=== PATIENT | male | born 1985 | race Caucasian/White ===

== ENCOUNTER 2018-05-25 20:02 | Emergency (ER) | payer BC ==
[2018-05-25] MEDS ORDERED: Sodium Chloride 0.9% 10 ML Syringe FLUSH PRN (20:57)
[2018-05-25] MEDS ORDERED: Sodium Chloride 0.9% 1,000 ML IV ONE (20:57)
[2018-05-25] MEDS ORDERED: Ondansetron 4 MG/2 ML SDV IVPUSH ONE (20:57)
--- NOTE | 2018-05-25 20:59 | EDM.PDOC ---
ED HPI GENERAL MEDICAL PROBLEM - General Chief Complaint: Abdominal Pain Stated Complaint: ABDOMINAL PAIN Time Seen by Provider: 05/25/18 20:44 Source of Information: Reports: Patient History Limitations: Reports: No Limitations - History of Present Illness INITIAL COMMENTS - FREE TEXT/NARRATIVE: Patient is a 32-year-old male presents ED complaining of left lower quadrant abdominal pain. Patient states today the pain started approximately 1530 while at work. Patient describes the pain as a dull ache with intermittent shooting sharp pains. He's had multiple episodes of diarrhea today. No blood present. States she's had a history of diarrhea from May 11 May 22. This stopped for a few days and has come back with recent worsening symptoms. There's been no ingestion of bad or questionable food, sick contact, history of C. difficile , or out of country travel. Has been no documented fever, shortness of breath, chest pain, rash, or any additional complaints. States at times he does experience some dysuria. He has no history of kidney stones. States he is concerned about diverticulitis since there is a strong family history of it. Patient was triaged at the [facility] and was instructed to come to the ED without being seen by provider. Patient has no past medical history. Medications none. Surgical history none. Patient does not smoke, use recreational drugs, or consume alcohol. Left Lower Abdomen Pain Score (Numeric/FACES): 6 - Related Data Allergies Allergy/AdvReac Type Severity Reaction Status Date / Time No Known Allergies Allergy Verified 05/25/18 20:19 Home Meds: Home Meds Ondansetron [Zofran ODT] 4 mg PO Q6H PRN #15 tab.dis 05/26/18 [Rx] metroNIDAZOLE [Flagyl] 500 mg PO Q8H #30 tab 05/26/18 [Rx] Past Medical History - Past Surgical History HEENT Surgical History: Reports: Eye Surgery, Tonsillectomy Social & Family History - Tobacco Use Smoking Status *Q: Never Smoker - Caffeine Use Caffeine Use: Reports: Coffee, Soda - Recreational Drug Use Recreational Drug Use: No ED ROS GENERAL - Review of Systems Review Of Systems: See Below ED EXAM, GI/ABD - Physical Exam Exam: See Below Exam Limited By: No Limitations General Appearance: Alert, WD/WN, Mild Distress Ears: Hearing Grossly Normal Nose: Normal Inspection Throat/Mouth: Normal Inspection, Normal Oropharynx, Normal Voice, No Airway Compromise Neck: Normal Inspection, Supple Respiratory/Chest: No Respiratory Distress, Lungs Clear, Normal Breath Sounds, No Accessory Muscle Use, Chest Non-Tender Cardiovascular: Normal Peripheral Pulses, Regular Rate, Rhythm, No Murmur GI/Abdominal Exam: Normal Bowel Sounds, Soft, No Organomegaly, No Distention, Tender (LLQ) Back Exam: Normal Inspection Extremities: Normal Inspection Neurological: Alert, Oriented, CN II-XII Intact, Normal Cognition, No Motor/ Sensory Deficits Psychiatric: Normal Affect, Normal Mood Skin Exam: Warm, Dry, Intact, Normal Color Course - Vital Signs Last Recorded V/S: Last Vital Signs Temp 97.9 F 05/25/18 20:15 Pulse 77 05/25/18 20:15 Resp 20 05/25/18 20:15 BP 129/86 05/25/18 20:15 Pulse Ox 99 05/25/18 20:15 - Orders/Labs/Meds Labs: Laboratory Tests 05/25/18 05/25/18 05/25/18 Range/Units 21:22 21:22 23:29 WBC 12.52 H (4.23-9.07) K/mm3 RBC 5.44 (4.63-6.08) M/mm3 Hgb 16.1 (13.7-17.5) gm/L Hct 46.9 (40.1-51.0) % MCV 86.2 (79.0-92.2) fl MCH 29.6 (25.7-32.2) pg MCHC 34.3 (32.2-35.5) g/dl RDW Std Deviation 39.5 (35.1-43.9) fL Plt Count 211 (163-337) K/mm3 MPV 9.8 (9.4-12.3) fl Neutrophils % (Manual) 77 H (40-60) % Band Neutrophils % 0 (0-10) % Lymphocytes % (Manual) 15 L (20-40) % Atypical Lymphs % 0 % Monocytes % (Manual) 7 (2-10) % Eosinophils % (Manual) 1 (0.8-7.0) % Basophils % (Manual) 0 L (0.2-1.2) Platelet Estimate Adequate RBC Morph Comment Normal Sodium 140 (136-145) mEq/L Potassium 4.2 (3.5-5.1) mEq/L Chloride 104 (98-107) mEq/L Carbon Dioxide 27 (21-32) mEq/L Anion Gap 13.2 (5-15) BUN 18 (7-18) mg/dL Creatinine 1.2 (0.7-1.3) mg/dL Est Cr Clr Drug Dosing 97.00 mL/min Estimated GFR (MDRD) > 60 (>60) mL/min BUN/Creatinine Ratio 15.0 (14-18) Glucose 98 (74-106) mg/dL Calcium 9.0 (8.5-10.1) mg/dL Total Bilirubin 0.7 (0.2-1.0) mg/dL AST 23 (15-37) U/L ALT 66 H (16-63) U/L Alkaline Phosphatase 81 (46-116) U/L C-Reactive Protein 2.7 H* (<1.0) mg/dL Total Protein 7.2 (6.4-8.2) g/dl Albumin 3.7 (3.4-5.0) g/dl Globulin 3.5 gm/dL Albumin/Globulin Ratio 1.1 (1-2) C.difficile [id number] Presumptive negative C. difficile Tox (PCR) Negative Meds: Medications Discontinued Medications Generic Name Dose Route Start Last Admin Trade Name Shahabq PRN Reason Stop Dose Admin Sodium Chloride 1,000 mls @ 250 mls/hr 05/25/18 20:57 05/25/18 21:23 Normal Saline IV 05/26/18 00:56 250 mls/hr ONETIME ONE Administration Ceftriaxone Sodium 2 gm/ 100 mls @ 200 mls/hr 05/25/18 23:44 05/25/18 23:59 Sodium Chloride IV 05/26/18 00:13 200 mls/hr ONETIME ONE Administration Metronidazole 500 mg/ Premix 100 mls @ 100 mls/hr 05/25/18 23:44 05/26/18 00: 31 IV 05/26/18 00:43 100 mls/hr ONETIME ONE Administration Ondansetron HCl 4 mg 05/25/18 20:57 05/25/18 21:23 Zofran IVPUSH 05/25/18 20:58 4 mg ONETIME ONE Administration Sodium Chloride 10 ml 05/25/18 20:57 05/25/18 21:24 Saline Flush FLUSH 10 ml ASDIRECTED PRN Administration Keep Vein Open - Re-Assessments/Exams Free Text/Narrative Re-Assessment/Exam: IV established with normal saline 250 mL per hour and also Zofran 4 mg IVP. Initial labs and studies include: CBC, chem 14, CRP, UA, and CT the abdomen and pelvis with oral and IV contrast. Patient refuses narcotic pain medications. Stool WBC final: Rare I have ordered C. difficile by PCR and stool culture. Labs reviewed: White blood cell count 12.52, hemoglobin 16.1, platelet count 211 , neutrophil percentage 77 with no left shift. Chemistry panel is essentially normal. CRP 2.7. ALT only mildly elevated at 66. 05/25/18 23:45 CT abdomen and pelvis reviewed with Dr. Gibbs. Findings concerning for diverticulitis LLQ. Ordered flagyl 500mg IV and rocephin 2 grams IV. Final interpretation is pending. 05/26/18 00:00 CT abdomen/pelvis impression: Acute left-sided sigmoid diverticulitis but no evidence for abscess bowel obstruction or free air. Will discharge patient home with instructions as documented. The patient remained hemodynamically stable while under my care in the E.D. I discussed the concerning symptoms for which to returnto the E.D. with the patient/family. The patient/family verbalized understanding. All questions were answered. Departure - Departure Time of Disposition: 00:01 Disposition: Home, Self-Care 01 Condition: Good Clinical Impression: Diverticulitis of sigmoid colon - Discharge Information Prescriptions: metroNIDAZOLE [Flagyl] 500 mg PO Q8H #30 tab Ondansetron [Zofran ODT] 4 mg PO Q6H PRN #15 tab.dis PRN Reason: Nausea Instructions: High-Fiber Diet, Diverticulitis Referrals: Sukumar Meyer Jr, MD [Primary Care Provider] - Forms: ED Department Discharge, ED Return to Work/School Form Additional Instructions: Take the full course of Flagyl as prescribed. Utilize Zofran as needed for nausea and vomiting. Push the fluids. For the next 48 to 72 hrs stick to a liquid diet. Thereafter advance to a low residue diet for duration of infection. Suggest utilizing a OTC probiotic as well. Take ibuprofen 600mg every 6 hrs with food and plenty of water. Followup with PCP in the next 3 to 5 days. Return to the E.D. if you develop any new or worsening symptoms.
[2018-05-25] MEDS ORDERED: metroNIDAZOLE/Normal Saline 500 MG in Premix Bag 1 BAG IV ONE (23:44)
[2018-05-25] MEDS ORDERED: cefTRIAXone 2 GM in Sodium Chloride 0.9% 100 ML IV ONE (23:44)
--- NOTE | 2018-05-26 17:16 | CT ---
CT abdomen and pelvis Technique: Multiple axial sections were obtained from above the dome of the diaphragm inferiorly through the pubic symphysis. Intravenous and oral contrast was utilized. Delayed images were also obtained through the pelvis. Findings: Inflammatory change is seen around a portion of the sigmoid colon. Adjacent bowel wall thickening is seen. This occurs in an area of diverticulosis and findings are felt compatible with diverticulitis. No free fluid is seen. Visualized lung bases show nothing acute. Liver shows diffuse decreased density compatible with fatty infiltration. Spleen appears within normal limits. Adrenal glands show no nodule. Pancreas appears within normal limits. Small scattered lymph nodes are seen within the retroperitoneum which are felt to be within normal limits. Appendix is seen which is normal. Aorta shows no aneurysmal dilatation. No pelvic mass or adenopathy is seen. Delayed images show contrast within the distal ureters and within the bladder. Bone window settings were reviewed which show spondylitic defects at L5-S1 with minimal spondylolisthesis. Impression: 1. Sigmoid diverticulitis. 2. Fatty infiltration within the liver and other incidental findings. Diagnostic code #3 I agree with preliminary report issued by [employer] ([employer] report finalized on 05/26/18, 12:58 AM Central Time)
== END 2018-05-26 01:38 | disposition home or self-care (01) ==
LOC: JD.ED 20:02
DX: K57.32 Diverticulitis of large intestine without perforation or abscess without bleeding (principal)
CPT/HCPCS: 36415; 74177; 80053; 85007; 85027; 86140; 87046; 87427; 87493; 89055; 96361; 96365; 96367; 96375; 99284; J0696; J2405; J3490; J7030; J7040; J7050

== ENCOUNTER 2021-06-22 04:44 | Day surgery (SDC) | payer BC ==
[2021-06-22] MEDS ORDERED: Sodium Chloride 0.9% 10 ML SDV FLUSH ONE (06:02)
--- NOTE | 2021-06-22 06:06 | EDM.PDOC ---
<Nakul Lewis - Last Filed: 06/22/21 07:10> ED HPI GENERAL MEDICAL PROBLEM - General Chief Complaint: Abdominal Pain Stated Complaint: ABDOMINAL PAIN Time Seen by Provider: 06/22/21 05:50 Source of Information: Reports: Patient History Limitations: Reports: No Limitations - History of Present Illness INITIAL COMMENTS - FREE TEXT/NARRATIVE: Mr. Barney is a very pleasant 36-year-old gentleman who now presents the ED stating that he was woken with right lower quadrant abdominal pain around 01:00 this morning. He describes the pain as sharp and crampy in character. He states it was constant up until around 05:35, when it improved, although did not resolve. He states that the pain does not radiate. It feels better if he lies in the left decubitus position, worse if he lies on the right decubitus position or is upright. He has had some nausea, but no vomiting. No recent constipation or diarrhea. No dysuria, urinary frequency, or gross hematuria. No recent fever. No prior similar symptoms. The patient did not take any [id number] or home remedies prior to coming to the ED. He states that he last ate around 20:00 last night. Here in the ED, the patient's initial BP is found to be mildly elevated at 145/88, otherwise, he is hemodynamically stable, afebrile, saturating 100% on room air. He appears to be mildly uncomfortable, but in no acute distress. Prior to this morning, the patient denies having a recent fever, chills, sore throat, ear pain, nasal or sinus congestion, cough, dyspnea, chest pain, palpitations, nausea, vomiting, constipation, diarrhea, abdominal pain, urinary symptoms, recent weight gain or weight loss, recent bloody bowel movements or black bowel movements, recent joint aches, headaches, or rashes. The patient's PCP is Dr. Aris Carballo. He has received 2 COVID vaccinations. Right Middle Abdomen Pain Score (Numeric/FACES): 10 - Related Data Allergies Allergy/AdvReac Type Severity Reaction Status Date / Time No Known Allergies Allergy Verified 05/25/18 20:19 Home Meds: Home Meds Ondansetron [Zofran ODT] 4 mg PO Q6H PRN #15 tab.dis 05/26/18 [Rx] metroNIDAZOLE [Flagyl] 500 mg PO Q8H #30 tab 05/26/18 [Rx] Past Medical History Gastrointestinal History: Reports: Diverticulosis (diverticulitis) Endocrine/Metabolic History: Reports: Obesity/BMI 30+ - Past Surgical History HEENT Surgical History: Reports: Adenoidectomy, Eye Surgery, Oral Surgery (dental extractions), Tonsillectomy Social & Family History - Tobacco Use Tobacco Use Status *Q: Never Tobacco User - Caffeine Use Caffeine Use: Reports: Coffee, Soda - Alcohol Use Alcohol Use History: No - Recreational Drug Use Recreational Drug Use: No - Living Situation & Occupation Living situation: Reports: , with Spouse, with Family (4 kids) 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 ED EXAM, GI/ABD - Physical Exam Exam: See Below Exam Limited By: No Limitations General Appearance: Alert, WD/WN, Mild Distress (appears mildly uncomfortable) Eyes: Bilateral: Normal Appearance, EOMI Ears: Normal External Exam, Hearing Grossly Normal Nose: Normal Inspection Throat/Mouth: Normal Inspection, Normal Lips, Normal Voice, No Airway Compromise Head: Atraumatic, Normocephalic Neck: Normal Inspection, Full Range of Motion Respiratory/Chest: No Respiratory Distress, Lungs Clear, Normal Breath Sounds, No Accessory Muscle Use Cardiovascular: Normal Peripheral Pulses, Regular Rate, Rhythm, No Edema, No Gallop, No JVD, No Murmur, No Rub GI/Abdominal Exam: Normal Bowel Sounds, Soft, No Organomegaly, No Distention, No Abnormal Bruit, No Mass, Tender (Right lower quadrant only. Nontender elsewhere.), Other (Obturator sign absent. Psoas sign absent. Heel drop sign present.). No: Rebound Back Exam: Normal Inspection, Full Range of Motion. No: CVA Tenderness (L), CVA Tenderness (R) Extremities: Normal Inspection, Normal Range of Motion, No Pedal Edema, Normal Capillary Refill Neurological: Alert, Oriented, Normal Cognition, No Motor/Sensory Deficits Psychiatric: Normal Affect Skin Exam: Warm, Dry, Intact, Normal Color, No Rash Course - Re-Assessments/Exams Free Text/Narrative Re-Assessment/Exam: 06/22/21 06:00 The patient's presentation is most consistent with acute appendicitis. I have ordered some blood work, a swab for the SARS-CoV-2 virus, and a CT of the abdomen and pelvis with oral and IV contrast. In the meantime, the patient will be given IV fluid. He declined an offer for both pain medication and antinausea medicine at this time. 06/22/21 07:[address] Gibbs, and care of the patient turned over to him at this time, for change of shift. Departure - Departure Disposition: DC/Tfer to Critical Access 66 Clinical Impression: Appendicitis Qualifiers: Appendicitis type: acute appendicitis Acute appendicitis type: other Qualified Code(s): K35.890 - Other acute appendicitis without perforation or gangrene; K35.89 - Other acute appendicitis - Discharge Information Referrals: Aris Carballo MD [Primary Care Provider] - Forms: ED Department Discharge Sepsis Event Note (ED) - Evaluation Sepsis Screening Result: No Definite Risk <Uri Gibbs - Last Filed: 06/22/21 09:50> Course - Vital Signs Last Recorded V/S: Last Vital Signs Temp 98.1 F 06/22/21 05:11 Pulse 88 06/22/21 05:11 Resp 18 06/22/21 05:11 BP 145/88 H 06/22/21 05:11 Pulse Ox 100 06/22/21 05:11 - Orders/Labs/Meds Orders: Active Orders 24 hr Category Date Time Status Sodium Chloride 0.9% [Normal Saline] 1,000 ml Med 06/22/21 06:00 Active IV ASDIRECTED Sodium Chloride 0.9% [Normal Saline] 100 ml Med 06/22/21 06:15 Active IV ASDIRECTED Medication Orders Sodium Chloride (Normal Saline) 1,000 mls @ 150 mls/hr IV ASDIRECTED SANA Last Admin: 06/22/21 07:40 Dose: 150 mls/hr Documented by: HARLAN Sodium Chloride (Normal Saline) 100 mls @ 65 mls/min IV ASDIRECTED SANA Labs: Laboratory Tests 06/22/21 06/22/21 06/22/21 Range/Units 06:12 06:12 06:30 WBC 10.65 H (4.23-9.07) K/mm3 RBC 5.52 (4.63-6.08) M/mm3 Hgb 16.4 (13.7-17.5) gm/dl Hct 47.5 (40.1-51.0) % MCV 86.1 (79.0-92.2) fl MCH 29.7 (25.7-32.2) pg MCHC 34.5 (32.2-35.5) g/dl RDW Std Deviation 39.4 (35.1-43.9) fL Plt Count 216 (163-337) K/mm3 MPV 10.0 (9.4-12.3) fl Neutrophils % (Manual) 74 H (40-60) % Band Neutrophils % 1 (0-10) % Lymphocytes % (Manual) 18 L (20-40) % Atypical Lymphs % 0 % Monocytes % (Manual) 6 (2-10) % Eosinophils % (Manual) 0 L (0.8-7.0) % Basophils % (Manual) 1 (0.2-1.2) Platelet Estimate Adequate Plt Morphology Comment Normal RBC Morph Comment Normal Sodium 139 (136-145) mEq/L Potassium 4.3 (3.5-5.1) mEq/L Chloride 106 (98-107) mEq/L Carbon Dioxide 25 (21-32) mEq/L Anion Gap 12.3 (5-15) BUN 14 (7-18) mg/dL Creatinine 1.1 (0.7-1.3) mg/dL Est Cr Clr Drug Dosing 101.90 mL/min Estimated GFR (MDRD) > 60 (>60) mL/min BUN/Creatinine Ratio 12.7 L (14-18) Glucose 105 H (70-99) mg/dL Calcium 8.7 (8.5-10.1) mg/dL Total Bilirubin 0.6 (0.2-1.0) mg/dL AST 26 (15-37) U/L ALT 93 H (16-63) U/L Alkaline Phosphatase 63 (46-116) U/L Total Protein 7.0 (6.4-8.2) g/dl Albumin 3.6 (3.4-5.0) g/dl Globulin 3.4 gm/dL Albumin/Globulin Ratio 1.1 (1-2) SARS-CoV-2 RNA (KIMANI) Negative (NEGATIVE) Meds: Medications Generic Name Dose Route Start Last Admin Trade Name Freq PRN Reason Stop Dose Admin Sodium Chloride 1,000 mls @ 150 mls/hr 09/12/21 06:00 06/22/21 07:40 Normal Saline IV 150 mls/hr ASDIRECTED SANA Administration Sodium Chloride 100 mls @ 65 mls/min 06/22/21 06:15 Normal Saline IV ASDIRECTED SANA Discontinued Medications Generic Name Dose Route Start Last Admin Trade Name Zacarias PRN Reason Stop Dose Admin Dexamethasone Confirm 06/22/21 09:40 Dexamethasone 4 Mg/Ml 5 Ml Mdv Administered 06/22/21 09:41 Dose 20 mg .ROUTE .STK-MED ONE Diatrizoate Meglum/Diatrizoate Sod 120 ml 06/22/21 06:02 06/22/21 08:14 Diatrizoate Meglumine/Diatrizoate Sodium 37% 120 Ml Bottle PO 06/22/21 06:03 45 ml ONETIME ONE Administration Fentanyl Confirm 06/22/21 09:40 Fentanyl 250 Mcg/5 Ml Sdv Administered 06/22/21 09:41 Dose 250 mcg .ROUTE .STK-MED ONE Iopamidol 50 ml 06/22/21 06:02 06/22/21 08:15 Iopamidol 612 Mg/Ml 50 Ml Sdv IVPUSH 06/22/21 06:03 25 ml ONETIME ONE Administration Iopamidol 100 ml 06/22/21 06:02 06/22/21 08:15 Iopamidol 612 Mg/Ml 100 Ml Bottle IVPUSH 06/22/21 06:03 100 ml ONETIME ONE Administration Lidocaine HCl Confirm 06/22/21 09:40 Lidocaine 1% 5 Ml Sdv Administered 06/22/21 09:41 Dose 5 ml .ROUTE .STK-MED ONE Midazolam HCl Confirm 06/22/21 09:40 Midazolam 1 Mg/Ml 2 Ml Sdv Administered 06/22/21 09:41 Dose 2 mg .ROUTE .STK-MED ONE Ondansetron HCl Confirm 06/22/21 09:40 Ondansetron 4 Mg/2 Ml Sdv Administered 06/22/21 09:41 Dose 4 mg .ROUTE .STK-MED ONE Propofol Confirm 06/22/21 09:40 Propofol 200 Mg/20 Ml Sdv Administered 06/22/21 09:41 Dose 400 mg .ROUTE .STK-MED ONE Rocuronium [place] Confirm 06/22/21 09:40 Rocuronium 50 Mg/5 Ml Vial Administered 06/22/21 09:41 Dose 50 mg .ROUTE .STK-MED ONE Sodium Chloride 10 ml 06/22/21 06:02 Sodium Chloride 0.9% 10 Ml Sdv FLUSH 06/22/21 06:03 ONETIME ONE - Re-Assessments/Exams Free Text/Narrative Re-Assessment/Exam: 06/22/21 09:[address] Lewis. The patient's WBC was elevated at 10.65. His ALT was elevated at 93. His COVID [address] shows appendix is seen. Mild inflammatory type change is seen around the appendix which is compatible with early appendicitis. I called Dr Gonzalez and he will come see the patient and take him to the OR. The patient still does not want anything for pain. Departure - Departure Time of Disposition: 09:50 Condition: Fair Sepsis Event Note (ED) - Focused Exam Vital Signs: Vital Signs Temp Pulse Resp BP Pulse Ox 06/22/21 05:11 98.1 F 88 18 145/88 H 100
[2021-06-22] MEDS ORDERED: Sodium Chloride 0.9% 100 ML IV SCH (06:15)
[2021-06-22] MEDS: Sodium Chloride 0.9% 1,000 ML IV SCH (07:40)
[2021-06-22] MEDS: Diatrizoate Meglumine/Diatrizoate Sodium 37% 120 ML Bottle PO ONE (08:14)
[2021-06-22] MEDS: Iopamidol 612 MG/ML 100 ML Bottle IVPUSH ONE (08:15)
[2021-06-22] MEDS: Iopamidol 612 MG/ML 50 ML SDV IVPUSH ONE (08:15)
--- NOTE | 2021-06-22 08:37 | CT ---
CT abdomen and pelvis Technique: Multiple axial sections were obtained from above the dome of the diaphragm inferiorly through the pubic symphysis. Intravenous and oral contrast were utilized. Delayed images were also obtained through the pelvis. Comparison: Prior CT abdomen and pelvis exam of 05/25/18. Findings: Visualized lung bases show nothing acute. Diffuse fatty infiltration is noted within the liver. Gallbladder contains no calcified gallstones. Spleen size is normal. Pancreas is within normal limits. Adrenal glands show no nodule. Kidneys show symmetric contrast enhancement. No hydronephrosis or mass is seen. Delayed images show contrast within the distal ureters and within the bladder. Abdominal aorta shows no aneurysm. No retroperitoneal adenopathy or mesenteric abnormalities are seen. No pelvic mass or adenopathy is seen. Diverticuli are seen within the descending colon and sigmoid regions with no findings of diverticulitis. Appendix is seen. Mild inflammatory type change is seen around the appendix which is compatible with early appendicitis. Bone window settings were obtained which show spondylolytic defects at L5-S1. No significant spondylolisthesis is seen. Impression: 1. Findings compatible with early appendicitis. 2. Prominent fatty infiltration within the liver. 3. Other findings as described above are felt to be chronic. Diagnostic code #5
[2021-06-22] MEDS ORDERED: fentaNYL 250 MCG/5 ML SDV ONE (09:40)
[2021-06-22] MEDS ORDERED: Midazolam 1 MG/ML 2 ML SDV ONE (09:40)
[2021-06-22] MEDS ORDERED: Dexamethasone 4 MG/ML 5 ML MDV ONE (09:40)
[2021-06-22] MEDS ORDERED: Ondansetron 4 MG/2 ML SDV ONE (09:40)
[2021-06-22] MEDS ORDERED: Rocuronium 50 MG/5 ML Vial ONE (09:40)
[2021-06-22] MEDS ORDERED: Propofol 200 MG/20 ML SDV ONE (09:40)
--- NOTE | 2021-06-22 09:54 | PCM.PREANE ---
Preanesthetic Assessment - Procedure Proposed Procedure: Laparoscopic appendectomy - Anesthesia/Transfusion/Family Hx Anesthesia History: Prior Anesthesia Without Reaction Family History of Anesthesia Reaction: No Transfusion History: No Prior Transfusion(s) Intubation History: Unknown - Review of Systems General: No Symptoms Pulmonary: No Symptoms Cardiovascular: No Symptoms Gastrointestinal: Abdominal Pain, Nausea Neurological: No Symptoms Other: Reports: None - Physical Assessment NPO Status Date: 06/21/21 NPO Status Time: 21:00 Vital Signs: Last Vital Signs Temp 98.1 F 06/22/21 05:11 Pulse 88 06/22/21 05:11 Resp 18 06/22/21 05:11 BP 145/88 H 06/22/21 05:11 Pulse Ox 100 06/22/21 05:11 Height: 1.83 m Weight: 127.006 kg ASA Class: 2E Mental Status: Alert & Oriented x3 Airway Class: Mallampati = 1 Dentition: Reports: Normal Dentition, Caries Thyro-Mental Finger Breadths: 3 Mouth Opening Finger Breadths: 3 ROM/Head Extension: Full Lungs: Clear to Auscultation, Normal Respiratory Effort Cardiovascular: Regular Rate, Regular Rhythm, No Murmurs - Lab Values: Laboratory Last Values WBC 10.65 K/mm3 (4.23-9.07) H 06/22/21 06:12 RBC 5.52 M/mm3 (4.63-6.08) 06/22/21 06:12 Hgb 16.4 gm/dl (13.7-17.5) 06/22/21 06:12 Hct 47.5 % (40.1-51.0) 06/22/21 06:12 MCV 86.1 fl (79.0-92.2) 06/22/21 06:12 MCH 29.7 pg (25.7-32.2) 06/22/21 06:12 MCHC 34.5 g/dl (32.2-35.5) 06/22/21 06:12 RDW Std Deviation 39.4 fL (35.1-43.9) 06/22/21 06:12 Plt Count 216 K/mm3 (163-337) 06/22/21 06:12 MPV 10.0 fl (9.4-12.3) 06/22/21 06:12 Neutrophils % (Manual) 74 % (40-60) H 06/22/21 06:12 Band Neutrophils % 1 % (0-10) 06/22/21 06:12 Lymphocytes % (Manual) 18 % (20-40) L 06/22/21 06:12 Atypical Lymphs % 0 % 06/22/21 06:12 Monocytes % (Manual) 6 % (2-10) 06/22/21 06:12 Eosinophils % (Manual) 0 % (0.8-7.0) L 06/22/21 06:12 Basophils % (Manual) 1 (0.2-1.2) 06/22/21 06:12 Platelet Estimate Adequate 06/22/21 06:12 Plt Morphology Comment Normal 06/22/21 06:12 RBC Morph Comment Normal 06/22/21 06:12 Sodium 139 mEq/L (136-145) 06/22/21 06:12 Potassium 4.3 mEq/L (3.5-5.1) 06/22/21 06:12 Chloride 106 mEq/L (98-107) 06/22/21 06:12 Carbon Dioxide 25 mEq/L (21-32) 06/22/21 06:12 Anion Gap 12.3 (5-15) 06/22/21 06:12 BUN 14 mg/dL (7-18) 06/22/21 06:12 Creatinine 1.1 mg/dL (0.7-1.3) 06/22/21 06:12 Est Cr Clr Drug Dosing 101.90 mL/min 06/22/21 06:12 Estimated GFR (MDRD) > 60 mL/min (>60) 06/22/21 06:12 BUN/Creatinine Ratio 12.7 (14-18) L 06/22/21 06:12 Glucose 105 mg/dL (70-99) H 06/22/21 06:12 Calcium 8.7 mg/dL (8.5-10.1) 06/22/21 06:12 Total Bilirubin 0.6 mg/dL (0.2-1.0) 06/22/21 06:12 AST 26 U/L (15-37) 06/22/21 06:12 ALT 93 U/L (16-63) H 06/22/21 06:12 Alkaline Phosphatase 63 U/L (46-116) 06/22/21 06:12 Total Protein 7.0 g/dl (6.4-8.2) 06/22/21 06:12 Albumin 3.6 g/dl (3.4-5.0) 06/22/21 06:12 Globulin 3.4 gm/dL 06/22/21 06:12 Albumin/Globulin Ratio 1.1 (1-2) 06/22/21 06:12 SARS-CoV-2 RNA (KIMANI) Negative (NEGATIVE) 06/22/21 06:30 - Allergies Allergies/Adverse Reactions: Allergies Allergy/AdvReac Type Severity Reaction Status Date / Time No Known Allergies Allergy Verified 05/25/18 20:19 - Blood Blood Available: No Product(s) Available: None - Anesthesia Plan Pre-Op Medication Ordered: None - Acknowledgements Anesthesia Type Planned: General Anesthesia Pt an Appropriate Candidate for the Planned Anesthesia: Yes Alternatives and Risks of Anesthesia Discussed w Pt/Guardian: Yes Pt/Guardian Understands and Agrees with Anesthesia Plan: Yes PreAnesthesia Questionnaire HEENT History: Reports: Impaired Vision Cardiovascular History: Reports: None Respiratory History: Reports: None Gastrointestinal History: Reports: Diverticulosis (diverticulitis) Genitourinary History: Reports: None Musculoskeletal History: Reports: None Neurological History: Reports: None Psychiatric History: Reports: None Endocrine/Metabolic History: Reports: Obesity/BMI 30+ Hematologic History: Reports: None Immunologic History: Reports: None Oncologic (Cancer) History: Reports: None Dermatologic History: Reports: None - Past Surgical History HEENT Surgical History: Reports: Adenoidectomy, Eye Surgery, Oral Surgery (dental extractions), Tonsillectomy - SUBSTANCE USE Tobacco Use Status *Q: Never Tobacco User Tobacco Use Within Last Twelve Months: No Second Hand Smoke Exposure: No Days Per Week of Alcohol Use: 0 Number of Drinks Per Day: 0 Total Drinks Per Week: 0 Recreational Drug Use History: No - HOME MEDS Home Medications: Home Meds Ondansetron [Zofran ODT] 4 mg PO Q6H PRN #15 tab.dis 05/26/18 [Rx] metroNIDAZOLE [Flagyl] 500 mg PO Q8H #30 tab 05/26/18 [Rx] - CURRENT (IN HOUSE) MEDS Current Meds: Current Medications Sodium Chloride (Normal Saline) 1,000 mls @ 150 mls/hr IV ASDIRECTED SANA Last Admin: 06/22/21 07:40 Dose: 150 mls/hr Documented by: Sodium Chloride (Normal Saline) 100 mls @ 65 mls/min IV ASDIRECTED SANA Discontinued Medications Dexamethasone (Dexamethasone 4 Mg/Ml 5 Ml Mdv) Confirm Administered Dose 20 mg .ROUTE .STK-MED ONE Stop: 06/22/21 09:41 Diatrizoate Meglum/Diatrizoate Sod (Diatrizoate Meglumine/Diatrizoate Sodium 37% 120 Ml Bottle) 120 ml PO ONETIME ONE Stop: 06/22/21 06:03 Last Admin: 06/22/21 08:14 Dose: 45 ml Documented by: Fentanyl (Fentanyl 250 Mcg/5 Ml Sdv) Confirm Administered Dose 250 mcg .ROUTE .STK-MED ONE Stop: 06/22/21 09:41 Iopamidol (Iopamidol 612 Mg/Ml 50 Ml Sdv) 50 ml IVPUSH ONETIME ONE Stop: 06/22/21 06:03 Last Admin: 06/22/21 08:15 Dose: 25 ml Documented by: Iopamidol (Iopamidol 612 Mg/Ml 100 Ml Bottle) 100 ml IVPUSH ONETIME ONE Stop: 06/22/21 06:03 Last Admin: 06/22/21 08:15 Dose: 100 ml Documented by: Lidocaine HCl (Lidocaine 1% 5 Ml Sdv) Confirm Administered Dose 5 ml .ROUTE .STK-MED ONE Stop: 06/22/21 09:41 Midazolam HCl (Midazolam 1 Mg/Ml 2 Ml Sdv) Confirm Administered Dose 2 mg .ROUTE .STK-MED ONE Stop: 06/22/21 09:41 Ondansetron HCl (Ondansetron 4 Mg/2 Ml Sdv) Confirm Administered Dose 4 mg .ROUTE .STK-MED ONE Stop: 06/22/21 09:41 Propofol (Propofol 200 Mg/20 Ml Sdv) Confirm Administered Dose 400 mg .ROUTE .STK-MED ONE Stop: 06/22/21 09:41 Rocuronium [place] (Rocuronium 50 Mg/5 Ml Vial) Confirm Administered Dose 50 mg .ROUTE .STK-MED ONE Stop: 06/22/21 09:41 Sodium Chloride (Sodium Chloride 0.9% 10 Ml Sdv) 10 ml FLUSH ONETIME ONE Stop: 06/22/21 06:03
--- NOTE | 2021-06-22 10:37 | PCM.PRNOTE ---
- Free Text/Narrative Note: Date: 06/22/2021 Operation: laparoscopic appendectomy Indication: acute appendicitis Surgeon: Zhang Gonzalez MD Antibiotic: 2 g cefoxitin IV pre-incision EBL: 10 cc DVT ppx: SCD Specimen: appendix Findings: acute appendicitis without gangrene or perforation. Bleeding at left lower quadrant port site required transfascial suture ligature. Detailed Report: The patient was taken to the operating room placed on the table in supine position. Timeout was performed and general endotracheal anesthesia was initiated. Abdominal hair was clipped, and the abdomen was prepped and draped in usual sterile fashion. A Veress needle was placed in the left upper quadrant in order to establish pneumoperitoneum. Once pressure reached 15 mmHg, air was aspirated inferior to the umbilicus with a needle and syringe. A bladed 12 mm trocar was inserted inferior to the umbilicus, and a laparoscope was introduced into the abdomen. The patient was positioned in Trendelenburg and rotated to the left towards the surgeon. Additional 5 mm ports were placed in the suprapubic region in the left lower quadrant. The appendix was identified coming off the base of the cecum. A window was made in the mesoappendix using the [place] LigaSure at the base of the appendix. A 30 mm white laparoscopic linear stapler load was used to divide the appendix. The mesoappendix was divided using the LigaSure. The specimen was placed in an Endo Catch and removed through the umbilical port. The dissection field appeared clean and dry after suctioning. The umbilical incision was closed to the level of fascia with 0 Vicryl using laparoscopic suture passer. The left lower quadrant port was removed under laparoscopic visualization and hemorrhage was observed. This was not easily controlled with monopolar energy and so the laparoscopic suture passer was used to place a transfascial suture ligature which controlled the bleeding. Pneumoperitoneum was released and the remaining port was removed. Skin incisions were closed with subcuticular Vicryl suture and dressed with Dermabond. A total of 30 cc 0.5% Marcaine with epinephrine was used for local anesthetic throughout the case. The patient tolerated the procedure well.
[2021-06-22] MEDS: Bupivacaine 0.5%/EPINEPHrine 1:200,000 50 ML MDV ONE (10:44)
[2021-06-22] MEDS ORDERED: diphenhydrAMINE 50 MG/ML SDV ONE (10:46)
[2021-06-22] MEDS ORDERED: HYDROmorphone 0.5 MG/0.5 ML Syringe ONE (10:55)
[2021-06-22] MEDS ORDERED: Ketorolac 30 MG/ML SDV ONE (10:58)
--- NOTE | 2021-06-22 11:33 | PCM.HP.2 ---
H&P History of Present Illness - General Date of Service: 06/22/21 Admit Problem/Dx: Admission Diagnosis/Problem Admission Diagnosis/Problem Appendicitis Source of Information: Patient History Limitations: Reports: No Limitations - History of Present Illness Initial Comments - Free Text/Narative: Mr. Barney is a 36 yo man presenting with acute right lower quadrant pain wh ich woke him from sleep at 1 AM. He has never had pain like this; it is different from his bouts of diverticulitis which he has had in the past. Those episodes were uncomplicated and managed with antibiotics. He has had no abdominal operation and takes no medications regularly. CT shows evidence of acute appendicitis. Right Middle Abdomen Pain Score (Numeric/FACES): 10 - Related Data Allergies/Adverse Reactions: Allergies Allergy/AdvReac Type Severity Reaction Status Date / Time No Known Allergies Allergy Verified 05/25/18 20:19 Home Medications: Home Meds Ondansetron [Zofran ODT] 4 mg PO Q6H PRN #15 tab.dis 05/26/18 [Rx] metroNIDAZOLE [Flagyl] 500 mg PO Q8H #30 tab 05/26/18 [Rx] oxyCODONE 5 mg PO Q4H PRN #15 tab 06/22/21 [Rx] Past Medical History HEENT History: Reports: Impaired Vision Cardiovascular History: Reports: None Respiratory History: Reports: None Gastrointestinal History: Reports: Diverticulosis (diverticulitis) Genitourinary History: Reports: None Musculoskeletal History: Reports: None Neurological History: Reports: None Psychiatric History: Reports: None Endocrine/Metabolic History: Reports: Obesity/BMI 30+ Hematologic History: Reports: None Immunologic History: Reports: None Oncologic (Cancer) History: Reports: None Dermatologic History: Reports: None - Past Surgical History HEENT Surgical History: Reports: Adenoidectomy, Eye Surgery, Oral Surgery (dental extractions), Tonsillectomy Social & Family History - Tobacco Use Tobacco Use Status *Q: Never Tobacco User Second Hand Smoke Exposure: No - Caffeine Use Caffeine Use: Reports: Coffee, Soda - Alcohol Use Days Per Week of Alcohol Use: 0 Number of Drinks Per Day: 0 Total Drinks Per Week: 0 - Recreational Drug Use Recreational Drug Use: No - Living Situation & Occupation Living situation: Reports: , with Spouse, with Family (4 kids) 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[employer]) H&P Review of Systems - Review of Systems: Review Of Systems: See Below General: Reports: Malaise HEENT: Reports: No Symptoms Pulmonary: Reports: No Symptoms Cardiovascular: Reports: No Symptoms Gastrointestinal: Reports: Abdominal Pain, Nausea Genitourinary: Reports: No Symptoms Musculoskeletal: Reports: No Symptoms Skin: Reports: No Symptoms Psychiatric: Reports: No Symptoms Neurological: Reports: No Symptoms Hematologic/Lymphatic: Reports: No Symptoms Immunologic: Reports: No Symptoms Exam - Exam Exam: See Below - Vital Signs Vital Signs: Last Vital Signs Temp 36.7 C 06/22/21 05:11 Pulse 88 06/22/21 05:11 Resp 18 06/22/21 05:11 BP 145/88 H 06/22/21 05:11 Pulse Ox 100 06/22/21 05:11 Weight: 127.006 kg - Exam General: Alert, Oriented, Cooperative HEENT: Conjunctiva Clear Neck: Supple Lungs: Normal Respiratory Effort Cardiovascular: Regular Rate, Regular Rhythm GI/Abdominal Exam: Soft, Tender Extremities: Normal Inspection Skin: Warm, Dry Psychiatric: Normal Mood - Patient Data Lab Results Last 24 hrs: Laboratory Results - last 24 hr 06/22/21 06/22/21 06/22/21 Range/Units 06:12 06:12 06:30 WBC 10.65 H (4.23-9.07) K/mm3 RBC 5.52 (4.63-6.08) M/mm3 Hgb 16.4 (13.7-17.5) gm/dl Hct 47.5 (40.1-51.0) % MCV 86.1 (79.0-92.2) fl MCH 29.7 (25.7-32.2) pg MCHC 34.5 (32.2-35.5) g/dl RDW Std Deviation 39.4 (35.1-43.9) fL Plt Count 216 (163-337) K/mm3 MPV 10.0 (9.4-12.3) fl Neutrophils % (Manual) 74 H (40-60) % Band Neutrophils % 1 (0-10) % Lymphocytes % (Manual) 18 L (20-40) % Atypical Lymphs % 0 % Monocytes % (Manual) 6 (2-10) % Eosinophils % (Manual) 0 L (0.8-7.0) % Basophils % (Manual) 1 (0.2-1.2) Platelet Estimate Adequate Plt Morphology Comment Normal RBC Morph Comment Normal Sodium 139 (136-145) mEq/L Potassium 4.3 (3.5-5.1) mEq/L Chloride 106 (98-107) mEq/L Carbon Dioxide 25 (21-32) mEq/L Anion Gap 12.3 (5-15) BUN 14 (7-18) mg/dL Creatinine 1.1 (0.7-1.3) mg/dL Est Cr Clr Drug Dosing 101.90 mL/min Estimated GFR (MDRD) > 60 (>60) mL/min BUN/Creatinine Ratio 12.7 L (14-18) Glucose 105 H (70-99) mg/dL Calcium 8.7 (8.5-10.1) mg/dL Total Bilirubin 0.6 (0.2-1.0) mg/dL AST 26 (15-37) U/L ALT 93 H (16-63) U/L Alkaline Phosphatase 63 (46-116) U/L Total Protein 7.0 (6.4-8.2) g/dl Albumin 3.6 (3.4-5.0) g/dl Globulin 3.4 gm/dL Albumin/Globulin Ratio 1.1 (1-2) SARS-CoV-2 RNA (KIMANI) Negative (NEGATIVE) Result Diagrams: 06/22/21 06:12 06/22/21 06:12 Sepsis Event Note - Evaluation Sepsis Screening Result: No Definite Risk - Focused Exam Vital Signs: Vital Signs Temp Pulse Resp BP Pulse Ox 06/22/21 05:11 36.7 C 88 18 145/88 H 100 Problem List Initiated/Reviewed/Updated: Yes Orders Last 24hrs: Active Orders 24 hr Category Date Time Status Patient Status [ADT] Routine ADT 06/22/21 10:24 Active Ready for Discharge [RC] PER UNIT ROUTINE Care 06/22/21 11:30 Ordered Sodium Chloride 0.9% [Normal Saline] 1,000 ml Med 06/22/21 06:00 Active IV ASDIRECTED Sodium Chloride 0.9% [Normal Saline] 100 ml Med 06/22/21 06:15 Active IV ASDIRECTED Schedule Procedure [COMM] Routine Oth 06/22/21 10:24 Ordered Medication Orders Sodium Chloride (Normal Saline) 1,000 mls @ 150 mls/hr IV ASDIRECTED SANA Last Admin: 06/22/21 07:40 Dose: 150 mls/hr Documented by: HARLAN Sodium Chloride (Normal Saline) 100 mls @ 65 mls/min IV ASDIRECTED [facility] Assessment/Plan Comment:: acute appendicitis Plan for laparoscopic appendectomy - Mortality Measure Prognosis:: Good
[2021-06-22] MEDS ORDERED: Ondansetron 4 MG/2 ML SDV IVPUSH PRN (11:53)
[2021-06-22] MEDS ORDERED: HYDROmorphone 0.5 MG/0.5 ML Syringe IVPUSH PRN (11:53)
[2021-06-22] MEDS ORDERED: fentaNYL 100 MCG/2 ML SDV IVPUSH PRN (11:53)
--- NOTE | 2021-06-22 11:56 | PCM.POSTAN ---
POST ANESTHESIA ASSESSMENT - MENTAL STATUS Mental Status: Alert, Oriented, Other (Drowsy) - VITAL SIGNS Vital Signs: Last Vital Signs Temp 98.1 F 06/22/21 05:11 Pulse 88 06/22/21 05:11 Resp 18 06/22/21 05:11 BP 145/88 H 06/22/21 05:11 Pulse Ox 100 06/22/21 05:11 - RESPIRATORY Respiratory Status: Respiratory Rate WNL, Airway Patent, O2 Saturation Stable, Supplemental Oxygen - CARDIOVASCULAR CV Status: Pulse Rate WNL, Blood Pressure Stable - GASTROINTESTINAL GI Status: No Symptoms - PAIN Pain Score: 0 - POST OP HYDRATION Hydration Status: Adequate & Stable
== END 2021-06-22 13:38 | disposition home or self-care (01) ==
LOC: JD.ED 04:44 → JD.SDS 10:05
PROVIDERS: ATTEND Surgery
DX: K35.80 Unspecified acute appendicitis (principal); C7A.8 Other malignant neuroendocrine tumors; Z79.899 Other long term (current) drug therapy; E66.9 Obesity, unspecified; Z98.890 Other specified postprocedural states; Z01.812 Encounter for preprocedural laboratory examination; Z20.822 Contact with and (suspected) exposure to COVID-19; Z68.38 Body mass index [BMI] 38.0-38.9, adult
CPT/HCPCS: 00840; 36415; 74177; 74177-26; 80053; 85007; 85027; 99285; 99285-25; J0694; J1100; J1170; J1200; J1885; J2250; J2405; J2704; J2710; J3010; J3490; J7030; Q9963; Q9967; U0002